=== PATIENT | female | born 1965 | race Caucasian/White ===

== ENCOUNTER 2017-09-15 16:16 | Emergency (ER) | payer OTHER, MEDICAID | END 2017-09-15 17:19 | disposition home or self-care (01) | LOC: E/R 16:16 | DX: J20.9 Acute bronchitis, unspecified (principal); J32.9 Chronic sinusitis, unspecified; I10 Essential (primary) hypertension | CPT/HCPCS: 99284; Z7502 ==

== ENCOUNTER 2017-09-27 10:48 | Emergency (ER) | payer OTHER ==
[2017-09-27] MEDS: IBUPROFEN 600 MG TAB PO (11:59)
== END 2017-09-27 13:19 | disposition home or self-care (01) ==
LOC: FTE 10:48
DX: R51 Headache (principal); R05 Cough; I10 Essential (primary) hypertension
CPT/HCPCS: 71045; 99283-25

== ENCOUNTER 2018-02-08 20:30 | Emergency (ER) | payer OTHER ==
[2018-02-09] MEDS: IBUPROFEN 600 MG TAB PO (00:35)
== END 2018-02-09 00:40 | disposition home or self-care (01) ==
LOC: FTE 20:30
DX: M25.562 Pain in left knee (principal); I10 Essential (primary) hypertension
CPT/HCPCS: 29505; 99283-25

== ENCOUNTER 2019-03-16 11:42 | Emergency (ER) | payer OTHER | END 2019-03-16 12:27 | disposition home or self-care (01) | LOC: FTE 12:27 | DX: J02.9 Acute pharyngitis, unspecified (principal); I10 Essential (primary) hypertension | CPT/HCPCS: 99283; Z7502 ==

== ENCOUNTER 2019-04-10 11:47 | Day surgery (SDC) | payer OTHER ==
[2019-04-10] MEDS ORDERED: PROPOFOL 20 ML ×2 (15:31)
== END 2019-04-10 15:46 | disposition home or self-care (01) ==
LOC: GIL 11:47
DX: Z12.11 Encounter for screening for malignant neoplasm of colon (principal); K64.8 Other hemorrhoids; E11.9 Type 2 diabetes mellitus without complications; E78.5 Hyperlipidemia, unspecified; J45.909 Unspecified asthma, uncomplicated; Z79.84 Long term (current) use of oral hypoglycemic drugs
CPT/HCPCS: 45378; 82962